=== PATIENT | female | born 1985 | race Caucasian/White ===

== ENCOUNTER 2024-01-16 15:36 | Outpatient (REF) | payer SELFPAY ==
--- NOTE | 2024-01-16 14:55 | PAPFT_PTH ---
PATIENT: Ann Beyer LOC: [facility]#:[id number] AGE/SX: 38/F ROOM: RE01/16/[address]: Ginette Gregory : 1985 BED: DIS: 01/16/2024 SPEC #: [id number] RECD: 01/17/24 17:57 STATUS: CARLOS REGilles #: [id number] LELIA: 01/16/24 14:[address]: Ginette Gregory DEPT: [facility] Cytology RECD BY: Lucy Minor Tissues: 1 - CX/ENDOCX FOR PAP SMEARS Procedures: PAP THIN PREP/[facility] Screening HPV DNA PROBE Comments: [id number] (HPV 16 & 18/45)
== END 2024-01-16 15:37 | disposition home or self-care (01) ==
LOC: NCHCN 15:36
PROVIDERS: PCP Internal Medicine; Visit Provider Internal Medicine
DX: Z12.4 Encounter for screening for malignant neoplasm of cervix (principal)
CPT/HCPCS: 88142; 87624